=== PATIENT | male | born 1975 | race Caucasian/White ===

== ENCOUNTER 2023-02-10 17:39 | Emergency (ER) | payer BC ==
[~2023-02-10] VITALS: Ht 167.6 cm; Wt 83.9 kg
[2023-02-10 18:06] VITALS: BP 129/98; PULSE 107; RESP 18; TEMP 97.7; O2SAT 98
== END 2023-02-10 19:22 | disposition left against medical advice (07) ==
LOC: MED 17:39
DX: R30.0 Dysuria (principal); R10.30 Lower abdominal pain, unspecified; Z53.21 Procedure and treatment not carried out due to patient leaving prior to being seen by health care provider
CPT/HCPCS: 99281